=== PATIENT | male | born 1965 | race Caucasian/White ===

== ENCOUNTER 2022-07-03 13:46 | Outpatient (CLI) | payer BC, SELFPAY ==
--- NOTE | 2022-07-03 13:45 | MR_ITS ---
[address] [address] Phone:?[phone] Fax:?[phone] Referring Physician Information: Dav Sweet M.D. [id number] [facility] [address] Phone:?[phone] Fax:?[phone] Patient:Juliana Bacon D.O.B:?1965 Sex:?Male Phone:?[phone] [facility] MRN:?[id number] Exam Date:?07/03/2022 ? EXAM: MRI of the RIGHT KNEE, without contrast CLINICAL INFORMATION: Male, 57 years old, with right knee pain. No reported injury. INDICATION: Evaluate for internal derangement. PRIOR SURGERY: None reported. PLAIN FILMS: None available. COMPARISONS: No prior MRIs available. TECHNICAL INFORMATION: Using a 1.5T MR scanner and a localizing surface coil: sagittals: PD, PDFS coronals: PD, T2FS axials: PD, PDFS SEDATION: None CONTRAST: None FINDINGS: Knee joint: Effusion: Small right knee effusion. Popliteal cyst: Tiny, superiorly leaking Burt cyst. Loose bodies: None. Subcutaneous and extra-articular soft tissues: Moderate anterior subcutaneous soft tissue swelling extending from the patella to the tibial tubercle. Ligaments: ACL: Intact ACL anteromedial and posterolateral bundles, without sprain or tear. PCL: Intact PCL, without acute or chronic injury. MCL: Intact MCL superficial and deep layers, without injury. LCL: Intact LCL, without injury. Posterolateral corner: No posterolateral corner soft tissue injury. Popliteus, biceps femoris, iliotibial band, popliteofibular ligament and lateral gastrocnemius are intact. Posteromedial corner: No posteromedial corner soft tissue injury. Semimembranosus, pes anserine tendons and posterior oblique ligament are without injury, tendinopathy or bursitis. Extensor mechanism: Patellar tendon: Mild proximal patellar tendinopathy, without tear. Quadriceps tendon: Moderate marked quadriceps insertional tendinopathy with a 2.2 x 1.0 cm area of low-moderate grade partial-thickness tearing along the posterior aspect of the central and medial aspects of the tendon (axial T2FS series 4 image 8, coronal STIR series 8 image 7, and subtle PDFS series 6 image 14). Retinacula: Medial and lateral retinacula are intact. Fat pads: Moderate edema throughout Hoffa's and the suprapatellar fat pads. Medial compartment: Medial meniscus: No articular surface, meniscosynovial junction or root tear. No displacement, extrusion or parameniscal cyst. Medial femoral condyle: Broad-based grade III chondromalacia throughout the central surface of the medial femoral condyle, with minimal marginal osteophytosis. Medial tibial plateau: Broad-based grade II chondromalacia of the medial tibial plateau. Lateral compartment: Lateral meniscus: No articular surface, meniscosynovial junction or root tear. No displacement, extrusion or parameniscal cyst. Lateral femoral condyle: No chondromalacia or osteochondral abnormality. Lateral tibial plateau: No chondromalacia or osteochondral abnormality. Patellofemoral joint: Patella: Generalized grade II/III chondromalacia of the patella, with minimal marginal osteophytosis. Trochlea: Broad-based grade II chondromalacia of the medial patellar facet, with mild marginal osteophytosis. Proximal tibiofibular joint: Unremarkable, without evidence of ligament sprain injury, joint effusion or adjacent marrow edema. Bones: No stress/occult fractures or other marrow edema/pathology. IMPRESSION: 1. Moderate-marked quadriceps insertional tendinopathy with a 1.0 x 2.2 cm area of low-intermediate grade partial-thickness tendon tearing. 2. 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 3. Small knee joint effusion with a tiny, superiorly leaking Burt cyst. 4. No medial or lateral meniscal tear. 5. No cruciate or collateral ligament sprain/tear. 6. No fracture or osseous stress reaction. BC Electronically signed on 07/04/2022 8:34:00 PM by Yoel Stoner M.D.
== END 2022-07-03 13:47 | disposition home or self-care (01) ==
LOC: MRI 13:46
PROVIDERS: PCP Surgery; Visit Provider Orthopaedic Surgery Sports Medicine
DX: M25.561 Pain in right knee (principal); M17.11 Unilateral primary osteoarthritis, right knee; S86.911A Strain of unspecified muscle(s) and tendon(s) at lower leg level, right leg, initial encounter; M25.461 Effusion, right knee
CPT/HCPCS: 73721